=== PATIENT | female | born 1940 | race Caucasian/White ===

== ENCOUNTER 2024-02-12 13:09 | Outpatient (OUT) | payer MEDICARE, SELFPAY ==
--- NOTE | 2024-02-12 13:18 | XR_ITS ---
The [address] [address] Patient Name: VANESSA COULTER MRN: [id number] date: 1940 Sex: F Assigned Patient Location: [facility] Current Patient Location: [facility] Accession/Order Number: [id number] Exam Date: 02/12/2024 13:30 Report Date: 02/12/2024 14:15 At the request of: SHALONDA ANAYA Procedure: XR DEXA axial skeleton EXAMINATION: XR DEXA axial skeleton, 02/12/2024 1:30 PM EDT HISTORY: Asymptomatic Menopausal State Z78.0 COMPARISON: 2010 TECHNIQUE: Dual-energy X-ray absorptiometry (DEXA) bone density study performed for the axial skeleton. FINDINGS: Bone mineral density AP spine L1-L4 measures 1.036 g/sq cm. T score -1.2. Osteopenia. Lowest bone mineral density right femoral neck measuring 0.667 g/sq cm. T score -2.7. Osteoporosis XR/XR DEXA axial skeleton IMPRESSION: Osteoporosis. High fracture risk Pharmacologic treatment recommendations * No uniform recommendation applies to all patients. Management plans must be individualized. * Consider initiating pharmacologic treatment in postmenopausal women and men >= 50 years of age who have the following: Primary fracture prevention: * T-score <= - 2.5 at the femoral neck, total hip, lumbar spine, 33% radius (some uncertainty with existing data) by DXA. * Low bone mass (osteopenia: T-score between - 1.0 and - 2.5) at the femoral neck or total hip by DXA with a 10-year hip fracture risk >= 3% or a 10-year major osteoporosis-related fracture risk >= 20% (i.e., clinical vertebral, hip, forearm, or proximal humerus) based on the [place]-adapted FRAXregistered model. Secondary fracture prevention: * Fracture of the hip or vertebra regardless of BMD [4, 5]. * Fracture of proximal humerus, pelvis, or distal forearm in persons with low bone mass (osteopenia: T-score between - 1.0 and - 2.5). The decision to treat should be individualized in persons with a fracture of the proximal humerus, pelvis, or distal forearm who do not have osteopenia or low BMD [12, 13]. Ben TREVINO, Vivi SL, Agustin KL, Tomy EM, Rola KG, AJ, Eva ES. The clinician's guide to prevention and treatment of osteoporosis. Osteoporos Int. 2021;33(10):8092-7883. doi: 10.1007/d92995-212-49336-r. Epub 2021Dec 02. Erratum in: Osteoporos Int. 2021Mar 03;: PMID: [id number]; PMCID: [id number]. Electronically authenticated by: DEVEN LU Date: 02/12/2024 14:15
== END 2024-02-12 13:10 | disposition home or self-care (01) ==
LOC: RAD 13:10
PROVIDERS: PCP Family Medicine; Visit Provider Family Medicine
DX: M81.0 Age-related osteoporosis without current pathological fracture (principal); Z78.0 Asymptomatic menopausal state
CPT/HCPCS: 77080